=== PATIENT | male | born 1955 | race Caucasian/White ===

== ENCOUNTER → 2017-10-07 | Outpatient (CLI) | payer OTHER | LOC: LAB 12:53 | DX: B35.1 Tinea unguium (principal) | CPT/HCPCS: 87102 ==

== ENCOUNTER → 2018-02-28 | Outpatient (CLI) | payer OTHER ==
[2018-02-28 15:55] LABS: Calcium, Urine 10.4 mg/dL (2.0-17.5)
[2018-02-28 15:58] LABS: Creatinine Urine 35.7 mg/dL (27.00-270.00)
== END ==
LOC: OLS 14:46 → LAB SHORT 14:46
PROVIDERS: Internal Medicine Endocrinology, Diabetes & Metabolism
DX: E21.2 Other hyperparathyroidism (principal)
CPT/HCPCS: 81050; 82340; 82570

== ENCOUNTER → 2018-06-01 | Outpatient (CLI) | payer OTHER | END | disposition home or self-care (01) | LOC: LAB SHORT 10:13 → PLD 10:13 | DX: L85.9 Epidermal thickening, unspecified (principal) | CPT/HCPCS: 88305 ==

== ENCOUNTER 2020-10-08 00:48 | Day surgery (SDC) | payer MEDICARE, OTHER | END 2020-10-08 22:49 | disposition home or self-care (01) | LOC: WOUND 00:48 | DX: L97.811 Non-pressure chronic ulcer of other part of right lower leg limited to breakdown of skin (principal); I87.2 Venous insufficiency (chronic) (peripheral); I73.9 Peripheral vascular disease, unspecified; Z88.1 Allergy status to other antibiotic agents; Z87.891 Personal history of nicotine dependence | CPT/HCPCS: G0463 ==

== ENCOUNTER 2020-10-15 00:24 | Day surgery (SDC) | payer MEDICARE, OTHER | END 2020-10-15 23:16 | disposition home or self-care (01) | LOC: WOUND 00:24 | DX: L97.811 Non-pressure chronic ulcer of other part of right lower leg limited to breakdown of skin (principal) | CPT/HCPCS: A9270; G0463 ==

== ENCOUNTER → 2020-11-08 | Outpatient (CLI) | payer MEDICARE, OTHER ==
[2020-11-08 09:45] LABS: Appearance, Urine Clear (Clear); Bilirubin, Urine Neg (Neg); Blood, Urine Neg (Neg); Color, Urine Yellow (P-Yellow); Glucose Qualitative, Urine Neg (Neg); Ketones, Urine 1+ (Neg); Leukocyte Esterase, Urine 1+ (Neg); Nitrite, Urine Neg (Neg); Protein, Urine Neg (Neg); Specific Gravity, Urine 1.015 (1.003-1.022); Urobilinogen, Urine NORM (Normal)
[2020-11-08 10:13] LABS: Amorphous Mod (0-Heavy); Bacteria Rare /hpf; Red Blood Cells, Urine 0-2 /hpf (0-2); Squamous Epithelial Cells Rare /hpf (Few)
[2020-11-08 10:18] LABS: Calcium, Urine 17.9 mg/dL (< 17.5); Calcium, Urine Calculation 429.6 mg/24hrs (42.0-353.0)
== END | disposition home or self-care (01) ==
LOC: LAB SHORT 05:09 → LAB 05:09 → LAB FUT 11-06 14:00
PROVIDERS: Internal Medicine
DX: E29.1 Testicular hypofunction (principal)
CPT/HCPCS: 81001; 81050; 82340; 87077; 87086; 87186

== ENCOUNTER 2020-11-26 00:49 | Day surgery (SDC) | payer MEDICARE, OTHER | END 2020-11-26 23:14 | disposition home or self-care (01) | LOC: WOUND 00:49 | DX: L97.811 Non-pressure chronic ulcer of other part of right lower leg limited to breakdown of skin (principal); Z88.1 Allergy status to other antibiotic agents; Z87.891 Personal history of nicotine dependence | CPT/HCPCS: G0463 ==

== ENCOUNTER 2020-12-03 00:18 | Day surgery (SDC) | payer MEDICARE, OTHER | END 2020-12-03 22:53 | disposition home or self-care (01) | LOC: WOUND 00:18 | DX: L97.811 Non-pressure chronic ulcer of other part of right lower leg limited to breakdown of skin (principal) | CPT/HCPCS: 11104; 88305 ==

== ENCOUNTER 2020-12-11 00:39 | Day surgery (SDC) | payer MEDICARE, OTHER | END 2020-12-11 22:43 | disposition home or self-care (01) | LOC: WOUND 00:39 | DX: Z09 Encounter for follow-up examination after completed treatment for conditions other than malignant neoplasm (principal); Z87.2 Personal history of diseases of the skin and subcutaneous tissue | CPT/HCPCS: G0463 ==

== ENCOUNTER → 2021-03-26 | Outpatient (CLI) | payer MEDICARE, OTHER | LOC: LAB 12:10 → LAB SHORT 12:10 | DX: D48.5 Neoplasm of uncertain behavior of skin (principal); B35.1 Tinea unguium | CPT/HCPCS: 88305; 88312 ==

== ENCOUNTER → 2025-03-29 | Outpatient (CLI) | payer MEDICARE, BC ==
[2025-03-29 15:35] LABS: Calcium, Urine 25.5 mg/dL (< 17.5); Calcium, Urine Calculation 459.0 mg/24hrs (42.0-353.0)
== END | disposition home or self-care (01) ==
LOC: LAB SHORT 05:15 → LAB 05:15
PROVIDERS: Internal Medicine Endocrinology, Diabetes & Metabolism
DX: R82.994 Hypercalciuria (principal)
CPT/HCPCS: 82340; 82570

== ENCOUNTER → 2025-07-26 | Outpatient (CLI) | payer MEDICARE, BC ==
[2025-07-26 11:18] LABS: Calcium, Urine 17.4 mg/dL (< 17.5); Calcium, Urine Calculation 400.2 mg/24hrs (42.0-353.0)
== END ==
LOC: LAB 08:05 → LAB SHORT 08:05
PROVIDERS: Internal Medicine Endocrinology, Diabetes & Metabolism
DX: R82.994 Hypercalciuria (principal)
CPT/HCPCS: 82340; 82570